=== PATIENT | female | born 1945 | race Caucasian/White ===

== ENCOUNTER → 2016-06-16 | Outpatient (CLI) | payer MEDICARE, OTHER ==
[2016-06-16 09:34] LABS: CHLORIDE,CL 106 mmol/L (98-110); SODIUM,NA 141 mmol/L (136-146)
== END | disposition home or self-care (01) ==
LOC: MW.CHFP 08:36
PROVIDERS: ATTEND Emergency Medicine
DX: E03.9 Hypothyroidism, unspecified (principal); L50.9 Urticaria, unspecified; J06.9 Acute upper respiratory infection, unspecified; B97.89 Other viral agents as the cause of diseases classified elsewhere; H61.21 Impacted cerumen, right ear
CPT/HCPCS: 36415; 69209; 80053; 84439; 84443; 85025; G0463